=== PATIENT | female | born 1985 | race American Indian/Alaskan Native ===

== ENCOUNTER 2018-05-11 14:21 | Emergency (ER) | payer MEDICAID ==
--- NOTE | 2018-05-11 14:54 | ED PDOC ---
Arrival/HPI - General Time Seen by Provider: 05/11/18 14:24 Historian: Patient - History of Present Illness Narrative History of Present Illness (Text): 05/11/18 14:51 32yo female with past medical history of endometriosis who present with complaint of crampy pelvic pain since this morning. she reports similar history of pain with her period secondary to endometriosis. States her period started this morning and the pain started. She reports having nausea this morning, that have resolved. States is also very typical of her. States she was given Ibuprofen for the pain, but she stopped taking it. States she came to emergency department today, because her ob requires Doctors note from her. She denies vomiting, diarrhea, constipation, fever, back pain, sick contact, dizziness, any other complaint. Past Medical History - Provider Review Nursing Documentation Reviewed: Yes Family/Social History - Physician Review Nursing Documentation Reviewed: Yes Family/Social History: Unknown Family HX Allergies/Home Meds Allergies/Adverse Reactions: Allergies No Known Allergies Allergy (Verified 05/11/18 14:46) Home Medications: Home Meds Medication Instructions Recorded Confirmed Norgestimate-Ethinyl Estradiol 1 tab PO DAILY 05/11/18 05/11/18 [Tri-Previfem Tablet] Review of Systems - Physician Review All systems were reviewed & negative as marked: Yes - Review of Systems Constitutional: Normal Eyes: Normal ENT: Normal Respiratory: Normal Cardiovascular: Normal Gastrointestinal: Abdominal Pain, Nausea. absent: Constipation, Diarrhea, Vomiting, Hematochezia, Hematemesis Genitourinary Female: Normal Musculoskeletal: Normal Skin: Normal Neurological: Normal Endocrine: Normal Hemo/Lymphatic: Normal Psychiatric: Normal Physical Exam Vital Signs Reviewed: Yes Vital Signs Temp Pulse Resp BP Pulse Ox 05/11/18 16:17 71 16 105/69 100 05/11/18 16:13 98.1 F 88 18 127/81 100 05/11/18 15:10 98.3 F 81 18 123/83 100 Temperature: Afebrile Blood Pressure: Normal Pulse: Regular Respiratory Rate: Normal Appearance: Positive for: Well-Appearing, Non-Toxic, Comfortable Pain Distress: None Mental Status: Positive for: Alert and Oriented X 3 - Systems Exam Head: Present: Atraumatic, Normocephalic Pupils: Present: PERRL Extroacular Muscles: Present: EOMI Conjunctiva: Present: Normal Mouth: Present: Moist Mucous Membranes Neck: Present: Normal Range of Motion Respiratory/Chest: Present: Clear to Auscultation, Good Air Exchange. No: Respiratory Distress, Accessory Muscle Use Cardiovascular: Present: Regular Rate and Rhythm, Normal S1, S2. No: Murmurs Abdomen: No: Tenderness, Distention, Peritoneal Signs Back: Present: Normal Inspection Upper Extremity: Present: Normal Inspection. No: Cyanosis, Edema Lower Extremity: Present: Normal Inspection. No: Edema Neurological: Present: GCS=15, CN II-XII Intact, Speech Normal Skin: Present: Warm, Dry, Normal Color. No: Rashes Psychiatric: Present: Alert, Oriented x 3, Normal Insight, Normal Concentration Medical Decision Making ED Course and Treatment: 05/12/18 01:32 Pt in Ed for stated history. Her pain was controlled in emergency department with medication. Shew as treated for UTI with keflex. Referred to her PMD. - Lab Interpretations Lab Results: Lab Results 05/11/18 15:25: Urine Color Yellow, Urine Appearance Sl cloudy, Urine pH 6.0, Ur Specific [place] 1.025, Urine Protein Negative, Urine Glucose (UA) Negative, Urine Ketones Negative, Urine Blood Moderate H, Urine Nitrate Negative, Urine Bilirubin Negative, Urine Urobilinogen 0.2, Ur Leukocyte Esterase Moderate H, Urine RBC 5 - 10, Urine WBC 10 - 15, Ur Epithelial Cells 10 - 12, Urine Bacteria Many - Medication Orders Current Medication Orders: Discontinued Medications Cephalexin Monohydrate (Keflex) 500 mg PO STAT STA PRN Reason: Protocol Stop: 05/11/18 16:04 Last Admin: 05/11/18 16:15 Dose: 500 mg Ketorolac Tromethamine (Toradol) 60 mg IM STAT STA Stop: 05/11/18 14:55 Last Admin: 05/11/18 15:34 Dose: 60 mg MAR Pain Assessment Document 05/11/18 15:34 [facility] (Rec: 05/11/18 15:34 [email or web address] Pain Reassessment Is this a pain reassessment? Yes Presence of Pain Presence of Pain Yes Pain Scale Used Pain Scale Used Numeric Location Upper or Lower Lower Pain Location Body Site Abdomen Description Description Cramping Intensity of Pain at present 7 IM Administration Charges Document 05/11/18 15:34 FIONA (Rec: 05/11/18 15:34 [email or web address] Injection Site MAR Injection Site Right Deltoid Charges for Administration # of IM Administrations 1 Ondansetron HCl (Zofran Odt) 4 mg PO STAT STA Stop: 05/11/18 14:55 Last Admin: 05/11/18 15:33 Dose: 4 mg Disposition/Present on Arrival - Present on Arrival Any Indicators Present on Arrival: No History of DVT/PE: No History of Uncontrolled Diabetes: No Urinary Catheter: No History of Decub. Ulcer: No History Surgical Site Infection Following: None - Disposition Have Diagnosis and Disposition been Completed?: Yes Diagnosis: UTI (urinary tract infection), Abdominal pain Disposition: HOME/ ROUTINE Disposition Time: 16:05 Patient Plan: Discharge Condition: STABLE Discharge Instructions (ExitCare): Urinary Tract Infections in Adults, Acute Abdomen (Belly Pain) Additional Instructions: Take mediation and drink plenty of fluid Follow up with your doctor Return to emergency department for any new or worsening symptoms Prescriptions: Cephalexin [Keflex] 500 mg PO TID #21 capsule Referrals: Dawson Christopher MD [Primary Care Provider] - Follow up with primary Forms: WORK NOTE
[2018-05-11 15:41] VITALS: O2SAT 100
[2018-05-11 15:53] LABS: URINE BILIRUBIN NEGATIVE (NEGATIVE); URINE BLOOD MODERATE (NEGATIVE); URINE GLUCOSE (UA) NEGATIVE (NEGATIVE); URINE LEUKOCYTE ESTERASE MODERATE Leu/uL (NEGATIVE); URINE PROTEIN NEGATIVE mg/dL (<30 mg/dL); URINE UROBILINOGEN 0.2 E.U./dL (<1 E.U./dL)
[2018-05-11 15:56] LABS: URINE APPEARANCE SL CLOUDY (CLEAR); URINE COLOR YELLOW (YELLOW)
[2018-05-11 16:14] VITALS: TEMP 98.1
[2018-05-11 16:14] LABS: URINE BACTERIA MANY (NEG)
[2018-05-11 16:18] VITALS: BP 105/69; PULSE 71; RESP 16
== END 2018-05-11 16:17 | disposition home or self-care (01) ==
LOC: ED 14:21 → MERGE 14:21 → ED 16:17
DX: N39.0 Urinary tract infection, site not specified (principal); R10.2 Pelvic and perineal pain
CPT/HCPCS: 81001; 87086; 96372; 99282; J1885